=== PATIENT | male | born 1985 | race Caucasian/White ===

== ENCOUNTER 2017-06-12 05:32 | Outpatient (CLI) | payer BC ==
[~2017-06-12] VITALS: Ht 177.8 cm; Wt 117.9 kg
[2017-06-12] MEDS ORDERED: PAMI30VI8 SQ (13:38)
[2017-06-13] MEDS ORDERED: ACHD5005 PO (09:59)
== END 2017-06-12 13:40 ==
LOC: PREOP 05:32
PROVIDERS: ATTEND Surgery
DX: Z01.818 Encounter for other preprocedural examination (principal); L05.91 Pilonidal cyst without abscess

== ENCOUNTER 2017-06-13 07:59 | Day surgery (SDC) | payer BC ==
[~2017-06-13] VITALS: Ht 177.8 cm; Wt 117.9 kg
[~2017-06-13 07:59] MED LIST: PAMI30VI8 SQ
[2017-06-13] MEDS ORDERED: LIDOCAINE/EPI 1%-1:200,000 (XYLOCAINE) 10 ML VIAL ONE (08:13)
[2017-06-13] MEDS ORDERED: LACTATED RINGERS 1,000 ML IV PRN (08:14)
[2017-06-13 08:15] VITALS: BP 137/90
[2017-06-13] MEDS ORDERED: FAMOTIDINE 20MG/2ML IV (PEPCID) IV ONE (08:15)
[2017-06-13] MEDS ORDERED: NEOSTIGMINE (BLOXIVERZ ) 1 MG/1ML 10 ML VIAL ONE (08:16)
[2017-06-13] MEDS ORDERED: MIDAZOLAM 2 MG/2 ML (VERSED) VIAL ONE (08:16)
[2017-06-13] MEDS ORDERED: GLYCOPYRROLATE 0.2 MG/ML (ROBINUL) 2 ML VIAL ONE (08:16)
[2017-06-13] MEDS ORDERED: SEVOFLURANE (ULTANE) 15 ML INHAL SOLN ONE (08:16)
[2017-06-13] MEDS ORDERED: ROCURONIUM 50 MG/5 ML (ZEMURON) VIAL IV ONE (08:16)
[2017-06-13] MEDS ORDERED: proPOfol 200 MG/20 ML (DIPRIVAN) VIAL IV ONE (08:16)
[2017-06-13] MEDS ORDERED: ceFAZolin 2 GM/50 ML NS 50 ML ONE (08:16)
[2017-06-13] MEDS ORDERED: LIDOCAINE PF 2% 5 ML (XYLOCAINE) VIAL ONE (08:16)
[2017-06-13] MEDS ORDERED: ONDANSETRON 4 MG/2 ML (SDV) Z0FRAN ONE (08:16)
[2017-06-13] MEDS ORDERED: fentaNYL INJECTION 250 MCG/5 ML AMP ONE (08:16)
[2017-06-13] MEDS ORDERED: ceFAZolin 2 GM/NS 50 ML IV ONE (08:45)
[2017-06-13] MEDS ORDERED: CATHETER FLUSH 10 ML SYR IV PRN (08:45)
[2017-06-13] MEDS ORDERED: ceFAZolin 2 GM/50 ML NS 50 ML IV ONE (09:00)
--- NOTE | 2017-06-13 09:05 | Progress Note-Pre Operative ---
Pre-Operative Progress Note H&P Reviewed The H&P was reviewed, patient examined and no changes noted. Time Seen by Provider: 08:58 Date H&P Reviewed: Jun 13, 2017 Time H&P Reviewed: 08:58 Pre-Operative Diagnosis: pilonidal cyst with abscess ARABELLA LEI DO Jun 13, 2017 09:05
--- NOTE | 2017-06-13 09:58 | Progress Note-Post Operative ---
Post-Operative Progess Note Surgeon (s)/Steeplechase Jockey (s) Surgeon ARABELLA LEI DO Steeplechase Jockey: Zahra Pre-Operative Diagnosis pilonidal cyst with abscess Post-Operative Diagnosis same Procedure & Operative Findings Date of Procedure 06/13/17 Procedure Performed/Findings Exc of pilonidal cyst with debridement and packing Anesthesia Type GET Estimated Blood Loss Estimated blood loss (mL): less than 5ml Specimens/Packing Specimens Removed pilonidal cyst and tract ARABELLA LEI DO Jun 13, 2017 09:58
[2017-06-13] MEDS ORDERED: ACHD5005 PO (09:59)
--- NOTE | 2017-06-13 10:01 | Discharge Inst-Surgical ---
Discharge Inst-Surgical Depart Medication/Instructions New, Converted or Re-Newed RX: RX Given to Pt/Family Patient Instructions Follow up Appt: Make appointment for 1 week. Instructions: No strenuous activity. May shower in 24 hours, no tub bath or soaking. Use incentive spirometer at home as directed. No Smoking Skin/Wound Care: May remove bandages. You will need to change packing daily. Symptoms to Report: Appetite Changes, Extremity Discoloration, Numbness/Tingling, Swelling Increased , Bleeding Excessive, Eyesight Changes, Pain Increased, Urine Color Change, Constipation(Persistent), Fever over 101 degree F, Pain/Pressure in chest, Urinating Difficulty, Cough Up/Vomit Blood, Heart Beat Irreg/Pounding, Pain/ Pressure in jaw, Cramps in feet or legs, Lightheadedness, Pain/Pressure in shoulder, Diarrhea(Persistent), Memory Changes Suddenly, Questions/Concerns, Weight gain consecutive days, Dizziness/Fainting, Nausea/Vomiting, Shortness of Breath, Weight gain over 2 pounds If questions or concerns contact your physician Or seek help at emergency department. Activity Activity Instructions: Avoid Pulling & Pushing, Avoid Stress to Incision Driving Instructions: No Driving/Refer to Diet Discharge Diet: No Restrictions Diet After 24 Hours: Clear Liquid if Nauseous If Any Problems/Questions/Issu: Contact Your Physician, Go to Emergency Room Skin/Wound Care Infection Signs and Symptoms: Increased Redness, Foul Odor of Wound, Increased Drainage, Skin Itchy or Has a Rash, Increased Swelling, Temperature Above 101 F Bathing Instructions: Tub (sitz baths), Shower Ice Pack: Ice On and Off Site (as needed if it helps pain) ARABELLA LEI DO Jun 13, 2017 10:01
[2017-06-13] MEDS ORDERED: morphine INJ 10 MG/ML 1ML (SYR OR VIAL) IVP PRN (10:30)
[2017-06-13] MEDS ORDERED: ONDANSETRON 4 MG/2 ML (SDV) Z0FRAN IVP PRN (10:30)
[2017-06-13] MEDS ORDERED: HYDROmorphone (DILAUDID) 2 MG/ML VIAL IVP PRN (10:30)
[2017-06-13 11:10] VITALS: BP 99/69
[2017-06-13] MEDS ORDERED: HYDROcodone/APAP 5 MG/325 MG (LORTAB) TAB ONE (11:33)
[2017-06-13 11:40] VITALS: BP 106/73
[2017-06-13] MEDS ORDERED: HYDROcodone/APAP 5 MG/325 MG (LORTAB) TAB PO PRN (11:45)
--- NOTE | 2017-06-13 13:44 | OPERATIVE REPORT ---
DATE OF SERVICE: 06/13/2017 PREOPERATIVE DIAGNOSIS: Pilonidal cyst with abscess. POSTOPERATIVE DIAGNOSIS: Pilonidal cyst with abscess. PROCEDURE: Excision of pilonidal cyst with debridement and then placement of some iodoform packing. SURGEON: Sj Mcnulty DO HOOP MAKER: Jimmie Sweeney DO ANESTHESIA: General endotracheal tube. SPECIMEN: Pilonidal cyst and tract. BLOOD LOSS: Less than 5 mL. POSTOPERATIVE CONDITION: Stable. INDICATION FOR PROCEDURE: The patient is a 32-year-old male, who had a previous large pilonidal cyst that had to be removed with Z-plasty to be able to get this to close, had a small opening leaking whitish fluid and then sometimes clear yellow, pilonidal cyst with abscess. FINDINGS: The patient has a small pilonidal cyst, it was about 3 or 4 cm below previous incision right in the gluteal crease, elected to cut this out en bloc debridement and rough debridement with sponge as well as Bovie electrocautery and then sent to pathology. PROCEDURE NOTE: After informed consent was obtained, the patient was brought to the operating room. He was intubated and then placed on table in a prone position. He was then sterilely prepped and draped in normal fashion. Local lidocaine was used to infiltrate the area around this small opening again about 3 or 4 cm below the previous large incision. I elected to make a very small incision using 11 blade, went around the small opening approximately 4 mm2 was made then dissected down with 11 blade as well as Bovie electrocautery. I did not feel that this did not find this tract went in any direction and went straight down to the base of the coccyx. Did not encounter any obvious purulent material. I roughly debrided this with 4 x 4's and then debrided with some Bovie electrocautery. I attempted to obtain hemostasis with Bovie electrocautery and then elected to pack this with a 1/4-inch iodoform packing. The area was then cleaned and dried, dressing placed and patient then transferred to recovery room in stable condition. Sponge, instrument and needle count correct at the end of the case. Job ID: [id number] DocumentID: [id number] Dictated Date: 06/13/2017 12:54:17 [employer] Date: 06/13/2017 13:43:42 Dictated By: SJ MCNULTY, DO
== END 2017-06-13 12:16 | disposition home or self-care (01) ==
LOC: SDC 07:59
PROVIDERS: ATTEND Surgery
DX: L05.91 Pilonidal cyst without abscess (principal); E11.9 Type 2 diabetes mellitus without complications; F17.210 Nicotine dependence, cigarettes, uncomplicated; Z79.4 Long term (current) use of insulin
CPT/HCPCS: 82962; 87081; 94664

== ENCOUNTER 2018-05-09 12:58 | Emergency (ER) | payer BC ==
[~2018-05-09] VITALS: Ht 180.3 cm; Wt 95.3 kg
[~2018-05-09 12:58] MED LIST changes: +ACHD5005 PO
--- NOTE | 2018-05-09 13:28 | ED EENT ---
History of Present Illness General Chief Complaint: Dental Problems/Pain Stated Complaint: TOOTH ABSCESS History of Present Illness Date Seen by Provider: May 09, 2018 Time Seen by Provider: 13:20 Initial Comments 33 Year old male presents for bilateral lower dental pain and sore throat. He was seen by his dentist on 05/08/18 and started Ultram, and Augmentin. He has Hydrocodone from a previous health problem and has been taking that for pain. He took all of his medications yesterday as directed. At midnight he began having nausea and vomiting. He has vomited approximately 4 times. He denies ability to swallow his pills, as his throat is sore. He has had no analgesics or NSAIDs today. He is scheduled in May to have further dental work. Timing/Duration: gradual Severity: moderate Location: mouth, throat Prearrival Treatment: prescription meds (Tramadol, Hydrocodone, Augmentin prescirbed by Dentis, Gabby Milner) Associated Symptoms: poor fluid intake, poor solids intake, sore throat Allergies and Home Medications Allergies Coded Allergies: No Known Drug Allergies (Unverified , 06/12/17) Home Medications Hydrocodone Bit/Acetaminophen 1 Tab Tab, 1 TAB PO Q6H PRN Prescribed by: ARABELLA LEI on 06/13/17 0959 Insulin Lispro 100 Unit/1 Ml Cartridge, 0 SQ per pump, (Reported) Ondansetron HCl 8 Mg Tablet, 8 MG PO Q8H Prescribed by: CLIF MELENDEZ on 05/09/18 1415 Patient Home Medication List Home Medication List Reviewed: Yes Review of Systems Review of Systems Constitutional: no symptoms reported, see HPI Mouth: see HPI, pain Throat: see HPI, pain, painful swallowing Gastrointestinal: see HPI, nausea, vomiting All Other Systems Reviewed Negative Unless Noted: Yes Past Xcadlqw-Lkygei-Bbhffp Hx Past Med/Social Hx: Reviewed Nursing Past Med/Soc Hx Patient Social History Type Used: Cigarettes Recent Hopitalizations: No Immunizations Up To Date Date of Influenza Vaccine: Feb 17, 2017 Seasonal Allergies Seasonal Allergies: No Past Medical History Appendectomy, Tonsillectomy Physical Exam Vital Signs Vital Signs - First Documented 05/09/18 05/09/18 13:23 15:05 Temp 98.6 Pulse 120 Resp 18 B/P (MAP) 137/99 (112) Pulse Ox 96 Height, Weight, BMI Height: 5'10.00" Weight: 260lbs. 0.0oz. 117.700086er; 37.3 BMI Method: General Appearance: WD/WN, mild distress (secondary to pain. ) Eyes: bilateral eye normal inspection, bilateral eye PERRL, bilateral eye EOMI Ears: bilateral ear auricle normal, bilateral ear canal normal, bilateral ear TM normal Nose: normal inspection; No active bleeding, No discharge Mouth/Throat: pharynx normal, dental tenderness (Bilateral lower molars); No excessive drooling; mandibular swelling Neck: non-tender, full range of motion, supple, normal inspection, lymphadenopathy (R), lymphadenopathy (L) Cardiovascular: normal peripheral pulses, regular rate, rhythm Respiratory: chest non-tender, lungs clear, normal breath sounds Gastrointestinal: normal bowel sounds, non tender, soft; No guarding, No rebound, No tenderness Neurologic/Psychiatric: no motor/sensory deficits, alert, normal mood/affect, oriented x 3 Skin: normal color, warm/dry Progress/Results/Core Measures Results/Orders Lab Results Laboratory Tests Test 05/09/18 13:35 Range/Units Group A Streptococcus Screen NEGATIVE NEGATIVE My Orders Orders - CLIF MELENDEZ Rapid Strep A Screen (05/09/18 13:32) Ondansetron Oral Dissolve Tab (Zofran (05/09/18 13:32) Ketorolac Injection (Toradol Injection) (05/09/18 13:32) Lidocaine 2% Viscous 15 Ml (Xylocaine Vi (05/09/18 14:00) Medications Given in ED Current Medications Medications Dose Ordered Sig/Tisha Route Start Time Stop Time Status Last Admin Dose Admin Lidocaine HCl 5 ml ONCE ONCE PO 05/09/18 14:00 05/09/18 14:01 DC 05/09/18 14:10 5 ML Vital Signs/I&O 05/09/18 05/09/18 13:23 15:05 Temp 98.6 98.6 Pulse 120 110 Resp 18 16 B/P (MAP) 137/99 (112) 130/90 (103) Pulse Ox 96 Progress Progress Note : Time: 13:20 Progress Note Patient seen and evaluated. Will give Toradol 60 mg IM and Zofran 4 mg orally. 1400 patient reports symptoms to be improving. He is taking ice chips with no difficulty. Lidocaine on 2 x 2 applied to the right lower molar. 1420 patient reports improvement in his pain. Discharge instructions and return precautions reviewed with him. Departure Impression Primary Impression: Pain, dental Additional Impression: Dental abscess Disposition: 01 HOME, SELF-CARE Condition: Improved Departure-Patient Inst. Decision time for Depature: 14:15 Referrals: NO,LOCAL PHYSICIAN (PCP) Primary Care Physician Patient Instructions: Fractured Tooth (DC), Dental Pain (DC) Add. Discharge Instructions: Continue to take for Augmentin twice daily. Apply ice packs to your jaw as needed for pain every 2 hours for 20 minutes. Increase oral intake of fluids. You may take ibuprofen 600 mg every 8 hours. Continue to use the tramadol and hydrocodone as previously prescribed. Follow-up with your dentist. For nausea, you may take the Zofran every 8 hours. Apply Lidocaine patch, every 4 hours, as needed to area of pain. Remove before eating or sleeping Return to the emergency department for new, urgent health care problems. All discharge instructions reviewed with patient and/or family. Voiced understanding. Scripts Ondansetron HCl (Zofran) 8 Mg Tablet 8 MG PO Q8H, #6 TAB 0 Refills Prov: CLIF MELENDEZ 05/09/18 CLIF MELENDEZ May 09, 2018 13:28
[2018-05-09] MEDS ORDERED: ONDANSETRON 4 MG (ZOFRAN) ORAL DISSOLVE TAB SL STA (13:32)
[2018-05-09] MEDS ORDERED: KETOROLAC 60 MG/2 ML VIAL IM STA (13:32)
[2018-05-09] MEDS ORDERED: LIDOCAINE 2% VISCOUS 15 ML UDC PO ONE (14:00)
--- OUTSIDE RECORDS SUMMARY | 2018-05-09 14:07 | XMS REPORT | Continuity of Care Document ---
Author Author [facility] Organization [facility] Address Unknown Phone Unavailable Allergies Active Description Code Type Severity Reaction Onset Reported/Identified Relationship to Patient Clinical Status Yes No Known Drug Allergies [id number] Drug Allergy Unknown N/A 06/12/2017 Yes No Known Allergies No Known Allergies Drug Allergy Unknown N/A 2017 Medications There is no data. Problems Date Dx Coded Attending Type Code Diagnosis Diagnosed By 06/12/2017 ARABELLA LEI DO B Ot L05.91 PILONIDAL CYST WITHOUT ABSCESS 06/12/2017 KRIS LEI DOIC B Ot Z01.818 ENCOUNTER FOR OTHER PREPROCEDURAL EXAMIN 06/13/2017 ARABELLA LEI DO B Ot E11.9 TYPE 2 DIABETES MELLITUS WITHOUT COMPLIC 06/13/2017 DO FONSECA ARABELLA B Ot F17.210 NICOTINE DEPENDENCE, CIGARETTES, UNCOMPL 06/13/2017 DO FONSECA ARABELLA B Ot L05.91 PILONIDAL CYST WITHOUT ABSCESS 06/13/2017 KRIS LEI DOIC B Ot Z79.4 LONGTERM (CURRENT) USE OF INSULIN 06/13/2017 DO FONSECA ARABELLA B Ot L05.91 PILONIDAL CYST WITHOUT ABSCESS 06/13/2017 KRIS LEI DOIC B Ot Z01.818 ENCOUNTER FOR OTHER PREPROCEDURAL EXAMIN 06/14/2017 KRIS LEI DOIC B Ot E11.9 TYPE 2 DIABETES MELLITUS WITHOUT COMPLIC 06/14/2017 DO FONSECA ARABELLA B Ot F17.210 NICOTINE DEPENDENCE, CIGARETTES, UNCOMPL 06/14/2017 DO FONSECA ARABELLA B Ot L05.91 PILONIDAL CYST WITHOUT ABSCESS 06/14/2017 KRIS LEI DOIC B Ot Z79.4 LONGTERM (CURRENT) USE OF INSULIN 06/18/2017 DO FONSECA ARABELLA B Ot L05.91 PILONIDAL CYST WITHOUT ABSCESS 06/18/2017 KRIS LEI DOIC B Ot Z01.818 ENCOUNTER FOR OTHER PREPROCEDURAL EXAMIN Procedures There is no data. Results Test Result Range Capillary blood glucose measurement by glucometer (mass/volume) - 06/13/17 08: 09 Capillary blood glucose measurement by glucometer (mass/volume) 232 mg/dL 70-110 Methicillin resistant Staphylococcus aureus (MRSA) screening culture - 08:10 Methicillin resistant Staphylococcus aureus (MRSA) screening culture NEG NRG Capillary blood glucose measurement by glucometer (mass/volume) - 06/13/17 10: 16 Capillary blood glucose measurement by glucometer (mass/volume) 155 mg/dL 70-110 GLUCOSE (POC) - 10/31/17 10:02 GLUCOSE (POC) 182 mg/dL 70-99 GLUCOSE (POC) - 10/31/17 13:49 GLUCOSE (POC) 134 mg/dL 70-99 GLUCOSE (POC) - 10/31/17 16:32 GLUCOSE (POC) 184 mg/dL 70-99 Encounters ACCT No. Visit Date/Time Discharge Status Pt. Type Provider Facility Loc./Unit Complaint [id number] 10/31/2017 09:24:00 10/31/2017 16:56:00 DIS Outpatient Nigel VALLEJO, [facility] W.OPRA [id number] 06/13/2017 07:59:00 06/13/2017 12:16:00 DIS Outpatient ARABELLA LEI DO [facility] SDC PILONIDAL CYST [id number] 06/12/2017 05:32:00 06/12/2017 13:40:00 DIS Outpatient ARABELLA LEI DO [facility] PREOP PILONIDAL CYST [id number] 05/09/2018 12:59:00 ACT Emergency CLIF MELENDEZ [facility] ER TOOTH ABSCESS
--- OUTSIDE RECORDS SUMMARY | 2018-05-09 14:07 | XMS REPORT ---
Author Author BILLY BROWN [facility] Address Unknown Care Team Providers Care Circus Hand Name Role Phone BILLY BROWN Unavailable PROBLEMS Type Condition ICD9-CM Code AYS33-PA Code Onset Dates Condition Status SNOMED Code Problem Screening examination for pulmonary tuberculosis V74.1 Active [id number] ALLERGIES No Known Allergies ENCOUNTERS Encounter Location Date Diagnosis [facility] [address] [facility] [id number] [id number] Nov, Dental examination Z01.20 [facility] [address] [facility] [id number] [id number] Jan, IMMUNIZATIONS No Known Immunizations SOCIAL HISTORY Never Assessed REASON FOR VISIT ernestine PLAN OF CARE Activity Details Follow Up prn Reason:ugo/hygiene VITAL SIGNS Blood pressure systolic 129 mmHg 2017-12-06 Blood pressure diastolic 82 mmHg 2017-12-06 MEDICATIONS Medication Instructions Dosage Frequency Start Date End Date Duration Status Amoxicillin 500 mg Orally every 8 hrs 1 capsule 8h 07 days Active RESULTS No Results PROCEDURES Procedure Date Ordered Result Body Site LTD ORAL EVALUATION - PROBLEM FOCUS December 06, 2017 INTRAORL-PERIAPICAL 1 FILM [id number] December 06, 2017 BITEWING - SINGLE FILM December 06, 2017 INSTRUCTIONS MEDICATIONS ADMINISTERED No Known Medications MEDICAL (GENERAL) HISTORY Type Description Date Medical History diabetes 1 Medical History muscular disorder Surgical History two muscle biopsy Surgical History pulinital cleft lip Surgical History wisdom teeth removed Surgical History tonsiels removed
[2018-05-09] MEDS ORDERED: ONDA8TAB6 PO (14:15)
[2018-05-09 15:05] VITALS: BP 130/90
== END 2018-05-09 14:20 | disposition home or self-care (01) ==
LOC: EDUNIT# 12:58 → ER 12:59
DX: K04.7 Periapical abscess without sinus (principal); Z79.4 Long term (current) use of insulin; Z90.49 Acquired absence of other specified parts of digestive tract; Z90.89 Acquired absence of other organs
CPT/HCPCS: 87430; 99284

== ENCOUNTER → 2018-09-12 | Outpatient (CLI) | payer BC ==
[~2018-09-12] MED LIST changes: +ONDA8TAB6 PO
[2018-09-12 08:39] LABS: HEMOGLOBIN 16.7 G/DL (13.3-17.7); MEAN PLATELET VOLUME 9.9 FL (7.4-10.4); RED CELL DISTRIBUTION WIDTH 13.1 % (10.0-14.5); WHITE BLOOD COUNT 7.7 10^3/uL (4.3-11.0)
[2018-09-12 09:01] LABS: ALANINE AMINOTRANSFERASE 33 U/L (0-55); ALBUMIN 4.1 GM/DL (3.2-4.5); ALKALINE PHOSPHATASE 70 U/L (40-136); BILIRUBIN,TOTAL 0.9 MG/DL (0.1-1.0); BUN/CREATININE RATIO 14; CALCIUM 9.1 MG/DL (8.5-10.1); CARBON DIOXIDE 21 MMOL/L (21-32); CHLORIDE 108 MMOL/L (98-107); CHOLESTEROL 148 MG/DL (< 200); CREATININE SERUM 0.93 MG/DL (0.60-1.30); GFR ESTIMATED > 60; GLUCOSE 162 MG/DL (70-105); HDL CHOLESTEROL 28 MG/DL (40-60); POTASSIUM 3.9 MMOL/L (3.6-5.0); SODIUM 139 MMOL/L (135-145); TOTAL PROTEIN 6.7 GM/DL (6.4-8.2); TRIGLYCERIDES 77 MG/DL (<150); VLDL CHOLESTEROL 15 MG/DL (5-40)
== END ==
LOC: LAB 08:24
PROVIDERS: ATTEND Internal Medicine Endocrinology, Diabetes & Metabolism
DX: E10.65 Type 1 diabetes mellitus with hyperglycemia (principal)
CPT/HCPCS: 36415; 80053; 80061; 82570; 84156; 84443; 85027

== ENCOUNTER → 2018-09-17 | Outpatient (CLI) | payer BC | LOC: LAB 12:20 | PROVIDERS: ATTEND Internal Medicine Endocrinology, Diabetes & Metabolism | DX: E10.65 Type 1 diabetes mellitus with hyperglycemia (principal) | CPT/HCPCS: 36415; 82043 ==

== ENCOUNTER → 2019-06-02 | Outpatient (CLI) | payer BC | LOC: LAB 11:51 | PROVIDERS: ATTEND Internal Medicine Endocrinology, Diabetes & Metabolism | DX: E55.9 Vitamin D deficiency, unspecified (principal); E10.9 Type 1 diabetes mellitus without complications | CPT/HCPCS: 36415; 82306; 84443 ==

== ENCOUNTER → 2019-07-27 | Outpatient (CLI) | payer BC ==
[2019-07-27 13:26] LABS: ALANINE AMINOTRANSFERASE 21 U/L (0-55); ALBUMIN 4.4 GM/DL (3.2-4.5); ALKALINE PHOSPHATASE 75 U/L (40-136); BUN/CREATININE RATIO 12; CALCIUM 9.7 MG/DL (8.5-10.1); CARBON DIOXIDE 23 MMOL/L (21-32); CHLORIDE 106 MMOL/L (98-107); CHOLESTEROL 155 MG/DL (< 200); CREATININE SERUM 1.05 MG/DL (0.60-1.30); GFR ESTIMATED > 60; GLUCOSE 252 MG/DL (70-105); HDL CHOLESTEROL 31 MG/DL (40-60); POTASSIUM 4.3 MMOL/L (3.6-5.0); SODIUM 138 MMOL/L (135-145); TOTAL PROTEIN 7.2 GM/DL (6.4-8.2); TRIGLYCERIDES 91 MG/DL (<150); VLDL CHOLESTEROL 18 MG/DL (5-40)
== END ==
LOC: LAB 12:46
PROVIDERS: ATTEND Internal Medicine Endocrinology, Diabetes & Metabolism
DX: E10.65 Type 1 diabetes mellitus with hyperglycemia (principal)
CPT/HCPCS: 36415; 80053; 80061; 82043; 82306; 82607

== ENCOUNTER → 2020-11-22 | Outpatient (CLI) | payer BC ==
[2020-11-22 13:22] LABS: BASOPHILS % (AUTO) 0 % (0-10); EOSINOPHILS # (AUTO) 0.2 10^3/uL (0.0-0.3); EOSINOPHILS % (AUTO) 2 % (0-10); HEMATOCRIT 49 % (40-54); HEMOGLOBIN 16.9 g/dL (13.3-17.7); LYMPHOCYTES # (AUTO) 2.7 10^3/uL (1.0-4.0); LYMPHOCYTES % (AUTO) 34 % (12-44); MEAN CORPUSCULAR HEMOGLOBIN 31 pg (25-34); MEAN CORPUSCULAR HGB CONC 35 g/dL (32-36); MEAN CORPUSCULAR VOLUME 89 fL (80-99); MEAN PLATELET VOLUME 9.6 fL (9.0-12.2); MONOCYTES # (AUTO) 0.7 10^3/uL (0.0-1.0); MONOCYTES % (AUTO) 9 % (0-12); NEUTROPHILS # (AUTO) 4.4 10^3/uL (1.8-7.8); NEUTROPHILS % (AUTO) 54 % (42-75); PLATELET COUNT 270 10^3/uL (130-400); WHITE BLOOD COUNT 8.1 10^3/uL (4.3-11.0)
[2020-11-22 13:41] LABS: ALANINE AMINOTRANSFERASE 46 U/L (0-55); ALBUMIN 4.1 GM/DL (3.2-4.5); ALKALINE PHOSPHATASE 75 U/L (40-136); BILIRUBIN,TOTAL 0.9 MG/DL (0.1-1.0); BUN/CREATININE RATIO 12; CALCIUM 9.5 MG/DL (8.5-10.1); CARBON DIOXIDE 21 MMOL/L (21-32); CHLORIDE 107 MMOL/L (98-107); CHOLESTEROL 143 MG/DL (< 200); CREATININE SERUM 0.98 MG/DL (0.60-1.30); GFR ESTIMATED > 60; GLUCOSE 202 MG/DL (70-105); HDL CHOLESTEROL 32 MG/DL (40-60); POTASSIUM 4.2 MMOL/L (3.6-5.0); SODIUM 138 MMOL/L (135-145); TOTAL PROTEIN 7.4 GM/DL (6.4-8.2); TRIGLYCERIDES 67 MG/DL (<150); VLDL CHOLESTEROL 13 MG/DL (5-40)
[2020-11-23 16:13] LABS: CREATINE KINASE 5832 U/L (30-200)
== END ==
LOC: LAB 12:44
PROVIDERS: ATTEND Internal Medicine Endocrinology, Diabetes & Metabolism
DX: M79.2 Neuralgia and neuritis, unspecified (principal); E10.9 Type 1 diabetes mellitus without complications
CPT/HCPCS: 36415; 80053; 80061; 82043; 82306; 82550; 82607; 84443; 85025

== ENCOUNTER → 2021-01-06 | Outpatient (CLI) | payer BC | LOC: LAB 11:02 | PROVIDERS: ATTEND Psychiatry & Neurology Neuromuscular Medicine | DX: M62.82 Rhabdomyolysis (principal) | CPT/HCPCS: 36415; 83519 ==

== ENCOUNTER → 2021-06-06 | Outpatient (CLI) | payer BC | LOC: CARD 15:00 | PROVIDERS: ATTEND Nurse Practitioner Family | DX: R00.0 Tachycardia, unspecified (principal) ==

== ENCOUNTER → 2021-07-18 | Outpatient (CLI) | payer BC | LOC: CARD 13:30 | PROVIDERS: ATTEND Internal Medicine Cardiovascular Disease | DX: I11.9 Hypertensive heart disease without heart failure (principal); I25.10 Atherosclerotic heart disease of native coronary artery without angina pectoris; E11.9 Type 2 diabetes mellitus without complications | CPT/HCPCS: 93306 ==